=== PATIENT | male | born 1990 | race Caucasian/White ===

== ENCOUNTER 2020-12-16 04:36 | Emergency (ER) | payer SELFPAY | END 2020-12-16 05:51 | disposition home or self-care (01) | LOC: ERS 04:36 | DX: M79.10 Myalgia, unspecified site (principal) | CPT/HCPCS: 99283 ==

== ENCOUNTER 2025-07-10 18:12 | Emergency (ER) | payer BC, OTHER | END 2025-07-10 20:48 | disposition home or self-care (01) | LOC: ERS 18:12 | DX: S16.1XXA Strain of muscle, fascia and tendon at neck level, initial encounter (principal); S60.812A Abrasion of left wrist, initial encounter; V49.60XA Unspecified car occupant injured in collision with unspecified motor vehicles in traffic accident, initial encounter | CPT/HCPCS: 70450; 72125 ==